=== PATIENT | male | born 1965 | race Caucasian/White ===

== ENCOUNTER 2018-02-20 16:47 | Emergency (ER) | payer SELFPAY ==
[2018-02-20] MEDS: HYDROCODONE/APAP (10/325) TAB PO (17:23)
[2018-02-20] MEDS: DIPHTH/TET/ACEL PERTUSS (ADULT) 0.5 ML VIAL IM* (17:23)
== END 2018-02-20 19:05 | disposition home or self-care (01) ==
LOC: FTE 19:05
DX: S51.812A Laceration without foreign body of left forearm, initial encounter (principal); W25.XXXA Contact with sharp glass, initial encounter; Y92.9 Unspecified place or not applicable; Z23 Encounter for immunization
CPT/HCPCS: 12001; 73090; 90471; 90715; 99283-25